=== PATIENT | female | born 1970 | race Two or more races ===

== ENCOUNTER 2024-08-10 23:20 | Emergency (ER) | payer MEDICAID, OTHER ==
[~2024-08-10] VITALS: Ht 152.4 cm; Wt 131.8 kg
--- NOTE | 2024-08-10 23:52 | ED.PDOC ---
GI ASSESSMENT HPI Comments 53-year-old female came to ER for abdominal pain. Patient denies any abdominal surgeries. States she has been having abdominal pain since yesterday, intermittent, non provoked, associated with nausea and vomiting 2x. Noted worsening of abdominal pain prompted her to come to the ER. Chief Complaint: Abdominal Pain Time Seen by MD: 23:51 Reviewed Notes: Nurses Notes Allergies: Coded Allergies: NO KNOWN ALLERGIES (Unverified , 08/10/24) Information Source: Patient Mode of Arrival: EMS Timing: Days Duration: Intermittent Prehospital treatment: None Quality: Aching Vomitus: Watery Stool: Normal Severity: Moderate Recent: None Recent Hx of: None Pain Location: LLQ Associated sign and symptoms: Nausea, Vomiting, Abdominal Pain Past Medical History PAST MEDICAL HISTORY: HTN Surgical History: Denies all surgeries [employer] History: Denies all [employer] Hx Family History Family History: Reviewed,noncontributory to illness Social History Smoker: Non-Smoker Alcohol: Denies ETOH Use Drugs: Denies Drug Use Lives In: Home Constitutional: denies: chills, diaphoresis, fatigue, fever, malaise, sweats, weakness, others EENTM: denies: blurred vision, double vision, ear bleeding, ear discharge, ear drainage, ear pain, ear ringing, eye pain, eye redness, hearing loss, mouth pain, mouth swelling, nasal discharge, nose bleeding, nose congestion, nose pain, photophobia, tearing, throat pain, throat swelling, voice changes, others Respiratory: denies: cough, hemoptysis, orthopnea, SOB at rest, shortness of breath, SOB with excertion, stridor, wheezing, others Cardiovascular: denies: chest pain, dizzy spells, diaphoresis, Dyspnea on exertion, edema, irregular heart beat, left arm pain, lightheadedness, palpitations, PND, syncope, others Gastrointestinal: reports: abdominal pain, nausea, vomiting; denies: abdomen distended, blood streaked bowels, constipated, diarrhea, dysphagia, difficulty swallowing, hematemesis, melena, poor appetite, poor fluid intake, rectal bleeding, rectal pain, others Genitourinary: denies: abnormal vagina bleeding, burning, dyspareunia, dysuria, flank pain, frequency, hematuria, incontinence, pain, , vagina discharge, urgency, others Neurological: denies: dizziness, fainting, headache, left sided numbness, left sided weakness, numbness, paresthesia, pre-existing deficit, right sided numbness, right sided weakness, seizure, speech problems, tingling, tremors, weakness, others Musculoskeletal: denies: back pain, gout, joint pain, joint swelling, muscle pain, muscle stiffness, neck pain, others Integumetry: denies: bruises, change in color, change in hair/nails, dryness, laceration, lesions, lumps, rash, wounds, others Allergic/Immunocompromised: denies: Difficulty Healing, Frequent Infections, Hives, Itching, others Hematologic/Lymphatic: denies: anemia, blood clots, easy bleeding, easy bruising, swollen glands, others Endocrine: denies: excessive hunger, excessive sweating, excessive thirst, excessive urination, flushing, intolerance to cold, intolerance to heat, unexplained weight gain, unexplained weight loss, others Psychiatric: denies: anxiety, bipolar disorder, depression, hopeless, panic disorder, schizophrenia, sleepless, suicidal, others Physical Exam General Appearance: No Apparent Distress, Normal HEENT: Normal ENT Inspection, Pharynx Normal, TMs Normal Neck: Full Range of Motion, Non-Tender, Normal, Normal Inspection Respiratory: Chest Non-Tender, Lungs Clear, No Accessory Muscle Use, No Respiratory Distress, Normal Breath Sounds Cardiovascular: No Edema, No JVD, No Murmur, No Gallop, Normal Peripheral Pulses, Regular Rate/Rhythm Breast Exam: Deferred Gastrointestinal: LLQ, No Organomegaly, No Pulsatile Mass, Normal Bowel Sounds, Soft, Tenderness Genitalia: Deferred Pelvic: Deferred Rectal: Deferred Extremities: No calf tenderness, Normal capillary refill, Normal inspection, Normal range of motion, Non-tender, No pedal edema Musculoskeletal : Apperance: Normal Neurologic: Alert, morning nanny II-XII nml as Tested, No Motor Deficits, Normal Affect, Normal Mood, No Sensory Deficits Cerebellar Function: Normal Reflexes: Normal Skin: Dry, Normal Color, Warm Lymphatic: No Adenopathy Was a procedure done? Was a procedure done?: No GI differential Dx Differential Diagnosis: Cholecystitis, Constipation, Diverticular disease, Gastritis/PUD, Gastroenteritis, Hernia, Ovarian cyst/torsion, Pancreatitis, UTI, Dehydration X-Ray, Labs, Meds, VS Vital Signs Date Time Temp Pulse Resp B/P (MAP) Pulse Ox O2 Delivery O2 Flow Rate FiO2 08/10/24 23:38 98.2 84 20 165/75 (105) 100 Lab Test 08/11/24 03:48 08/10/24 23:44 Range/Units Urine Color Yellow Yellow Urine Clarity Clear Clear Urine pH 5.5 5.0-9.0 Urine Specific [place] > 1.050 H 1.001-1.035 Urine Protein Trace H Negative Urine Ketones 1+ H Negative Urine Blood 3+ H Negative /uL Urine Nitrite Negative Negative Urine Bilirubin Negative Negative Urine Urobilinogen Normal Negative mg/dL Urine Leukocyte Esterase Negative Negative /uL Urine RBC 94 0 - 4 /hpf Urine WBC 1 0 - 5 /hpf Urine Squamous Epithelial Cells Few <5 /hpf Urine Bacteria None seen None Seen /hpf Urine Mucus Few None Seen Urine Glucose Normal Normal mg/dL White Blood Count 12.3 H 4.4-10.8 10^3/uL Red Blood Count 4.84 4.0-5.20 10^6/uL Hemoglobin 14.7 12.2-16.2 g/dL Hematocrit 43.8 36.0-46.0 % Mean Corpuscular Volume 90.6 80.0-100.0 fL Mean Corpuscular Hemoglobin 30.4 28.0-32.0 pg Mean Corpuscular Hemoglobin Concent 33.5 32.0-36.0 g/dL Red Cell Distribution Width 14.3 11.8-14.3 % Platelet Count 336 140-450 10^3/uL Mean Platelet Volume 7.1 6.9-10.8 fL Neutrophils (%) (Auto) 71.5 37.0-80.0 % Lymphocytes (%) (Auto) 20.8 10.0-50.0 % Monocytes (%) (Auto) 5.3 0.0-12.0 % Eosinophils (%) (Auto) 2.0 0.0-7.0 % Basophils (%) (Auto) 0.4 0.0-2.0 % Neutrophils # (Auto) 8.8 H 1.6-8.6 10 ^3/uL Lymphocytes # (Auto) 2.6 0.4-5.4 10 ^3/uL Monocytes # (Auto) 0.6 0-1.3 10 ^3/uL Eosinophils # (Auto) 0.2 0-0.8 10 ^3/uL Basophils # (Auto) 0.1 0-0.2 10 ^3/uL Nucleated Red Blood Cells 0.0 % Sodium Level 141 136-145 mmol/L Potassium Level 4.0 3.5-5.1 mmol/L Chloride Level 108 H 98-107 mmol/L Carbon Dioxide Level 26 20-31 mmol/L Anion Gap 7 5-15 Blood Urea Nitrogen 13 9-23 mg/dL Creatinine 0.94 0.550-1.02 mg/dL Glomerular Filtration Rate Calc 73 >90 mL/min BUN/Creatinine Ratio 13.8 10.0-20.0 Serum Glucose 152 H 74-106 mg/dL Calcium Level 9.9 8.7-10.4 mg/dL Total Bilirubin 0.4 0.2-1.0 mg/dL Aspartate Amino Transferase (AST) 26 13-40 U/L Alanine Aminotransferase (ALT) 29 7-40 U/L Alkaline Phosphatase 118 H 46-116 U/L Total Protein 7.0 5.7-8.2 g/dL Albumin 4.3 3.2-4.8 g/dL Examination: ABPLIV CLINICAL INDICATION: llq abdominal dinorah COMPARISON: None. CONTRAST USED: Intravenous. TECHNIQUE: A post contrast CT study of the abdomen and pelvis is performed after administration of intravenous contrast medium. The examination was performed with [address] scan done according to ALARA (As Low as Reasonably Achievable). Multiplanar reconstructions were obtained. FINDINGS: CT ABDOMEN: Lung Base: The evaluation of lung bases demonstrates no focal infiltrates or pleural effusion. Liver: The liver is normal in size show reduced attenuation. The portal venous radicles are normal. There is no intrahepatic biliary radicle dilatation. Gallbladder: The gallbladder is normal and reveals no intrinsic abnormality. The common bile duct is not dilated. Pancreas: The pancreas is normal in size and shape. No focal lesion is seen within. The peripancreatic fat-planes are normal. Spleen: The spleen is normal in size and does not show any focal abnormality. Retroperitoneum: Both adrenal glands are normal in size and morphology. There is no significant retroperitoneal lymphadenopathy. The kidneys are normal in size. Mild left hydronephrosis is noted secondary to a 4 mm calculus at ureteropelvic junction. Vessels: Aorta, IVC and the mesenteric vessels appear unremarkable. Stomach and Bowel: The bowel loops are unremarkable. There is no ascites. Skeletal System: Mild degenerative changes are noted along the thoracolumbar spine. CT PELVIS: Appendix: The appendix is unremarkable in appearance. Colon: Descending and sigmoid colon diverticulosis is noted. No signs of acute diverticulitis seen. Bladder: The urinary bladder is unremarkable. Pelvic Organs: Uterus is unremarkable. No adnexal mass lesion seen. No pelvic lymphadenopathy is identified. No abnormal fluid collection is seen. Umbilical hernia is noted with omentum herniating as content. IMPRESSION: 1. Mild left hydronephrosis secondary to small ureteropelvic junction calculus. 2. Fatty hepatic infiltration. 3. Umbilical hernia. 4. Descending and sigmoid colon diverticulosis. No signs of acute diverticulitis seen. Time of 1ST Reevaluation: 23:48 Reevaluation 1ST: Unchanged Patient Education/Counseling: Diagnosis, Treatment Family Education/Counseling: No Family Present Departure 1 Departure Time of Disposition: 05:36 (Patient presented with abdominal pain that was concerning for possible appendicits, gastritis, cholecystitis, colitis, gastroenteritis, or orther possible surgical emergency. Data: 1. I ordered and reviewed the result of at least 3 labs including a CBC, BMP, and Urinalysis. 2. I independently interpreted the following tests: CT Abdoment and Pelvis is concerning for renal colic.Risk:This patient has a high risk of morbidity due to further diagnostic testing or treatment and may suffer from an acute abdominal process disorder. Fortunately workup reveals a 4 mm kidney stone and patient can be safely discharged to home with outpatient follow up.) Impression: Primary Impression: Renal colic on left side Disposition: 01 HOME / SELF CARE / HOMELESS Condition: Stable Referrals: ANANYA CALLE MD Additional Instructions: You have a kidney stone. You were prescribed flomax. Please take as directed. For pain you can take the followinam: Ibuprofen 400mg with food Noon: Acetaminophen 1000mg 4pm: Ibuprofen 400mg with food 8pm: Acetaminophen 1000mg You were prescribed oxycodone to take as needed for breakthrough pain. Please take as directed. You should follow up with your regular doctor or a urologist within one week to ensure you are doing better. If your symptoms worsen or you have any other concerns then please return to the ER. e-Prescriptions Oxycodone HCl (Oxycodone Hydrochloride) 5 Mg Tab 5 MG PO QID PRN for 4 Days, #16 TAB Prov: IRENE SUAREZ MD 1/19/25 Tamsulosin Hcl (Flomax) 0.4 Mg Cap 1 CAP PO DAILY for 14 Days, #30 CAP 11 Refills Prov: IRENE SUAREZ MD 08/11/24 Discharged With: Self Critical Care Note Critical Care Time?: No Stability Stability form required: No Heart Score Heart Score: Heart Score Response (Comments) Value History N/A 0 EKG N/A 0 Age N/A 0 Risk Factors N/A 0 Troponin N/A 0 Total 0 I personally scribed for IRENE SUAREZ MD ([email or web address]) on 08/10/24 at 23:52. El ectronically submitted by Reynaldo Rehman ([facility] I personally scribed for IRENE SUAREZ MD ([facility] on 08/11/24 at 04:21. Electronically submitted by Reynaldo Rehman ([facility] IRENE SUAREZ MD Aug 10, 2024 23:52
[2024-08-11] LABS: Basophils # (auto) 0.1 10 ^3/uL (0-0.2); Basophils % (auto) 0.4 % (0.0-2.0); Eosinophils # (auto) 0.2 10 ^3/uL (0-0.8); Hematocrit 43.8 % (36.0-46.0); Hemoglobin 14.7 g/dL (12.2-16.2); Lymphocytes # (auto) 2.6 10 ^3/uL (0.4-5.4); Lymphocytes % (auto) 20.8 % (10.0-50.0); Mean Corpuscular Hemoglobin 30.4 pg (28.0-32.0); Mean Corpuscular Hgb Conc. 33.5 g/dL (32.0-36.0); Mean Corpuscular Volume 90.6 fL (80.0-100.0); Monocytes # (auto) 0.6 10 ^3/uL (0-1.3); Monocytes % (auto) 5.3 % (0.0-12.0); Neutrophils # (auto) 8.8 10 ^3/uL (1.6-8.6); Neutrophils % (auto) 71.5 % (37.0-80.0); Platelet Count (auto) 336 10^3/uL (140-450); Red Blood Cells 4.84 10^6/uL (4.0-5.20); Red Cell Distribution Width 14.3 % (11.8-14.3); White Blood Cell 12.3 10^3/uL (4.4-10.8)
--- NOTE | 2024-08-11 00:02 | DVH ---
CHEST RADIOGRAPH Indication: llq abdominal pain Technique: Single frontal view of the chest was obtained Comparison: None FINDINGS: Lines and Tubes: None Lungs: No focal consolidation. Pleura: No effusion. No pneumothorax. Cardiomediastinal contours: Unremarkable Bones: No acute osseous abnormality. IMPRESSION: 1. No acute cardiopulmonary disease. HS:Y
[2024-08-11 00:20] LABS: Alanine Aminotransferase 29 U/L (7-40); Albumin 4.3 g/dL (3.2-4.8); Anion Gap 7 (5-15); Aspartate Aminotransferase 26 U/L (13-40); BUN/Creatinine Ratio 13.8 (10.0-20.0); Blood Urea Nitrogen 13 mg/dL (9-23); Calcium 9.9 mg/dL (8.7-10.4); Carbon Dioxide 26 mmol/L (20-31); Sodium 141 mmol/L (136-145)
[2024-08-11 00:21] LABS: Bilirubin, Total 0.4 mg/dL (0.2-1.0)
[2024-08-11 00:30] LABS: Alkaline Phosphatase 118 U/L (46-116); Chloride 108 mmol/L (98-107); Glucose 152 mg/dL (74-106)
[2024-08-11] MEDS: IOHEXOL 300 MG/ML 100ML BOTTLE IJ ONE (01:53)
--- NOTE | 2024-08-11 03:19 | DVH ---
Examination: ABPLIV CLINICAL INDICATION: llq abdominal dinorah COMPARISON: None. CONTRAST USED: Intravenous. TECHNIQUE: A post contrast CT study of the abdomen and pelvis is performed after administration of in travenous contrast medium. The examination was performed with [address] scan done accord ing to ALARA (As Low as Reasonably Achievable). Multiplanar reconstructions were obtained. FINDINGS: CT ABDOMEN: Lung Base: The evaluation of lung bases demonstrates no focal infiltrates or pleural effusion. Liver: The liver is normal in size show reduced attenuation. The portal venous radicles are normal. There is no intrahepatic biliary radicle dilatation. Gallbladder: The gallbladder is normal and reveals no intrinsic abnormality. The common bile duct i s not dilated. Pancreas: The pancreas is normal in size and shape. No focal lesion is seen within. The peripancr eatic fat-planes are normal. Spleen: The spleen is normal in size and does not show any focal abnormality. Retroperitoneum: Both adrenal glands are normal in size and morphology. There is no significant ret roperitoneal lymphadenopathy. The kidneys are normal in size. Mild left hydronephrosis is noted sec ondary to a 4 mm calculus at ureteropelvic junction. Vessels: Aorta, IVC and the mesenteric vessels appear unremarkable. Stomach and Bowel: The bowel loops are unremarkable. There is no ascites. Skeletal System: Mild degenerative changes are noted along the thoracolumbar spine. CT PELVIS: Appendix: The appendix is unremarkable in appearance. Colon: Descending and sigmoid colon diverticulosis is noted. No signs of acute diverticulitis seen. Bladder: The urinary bladder is unremarkable. Pelvic Organs: Uterus is unremarkable. No adnexal mass lesion seen. No pelvic lymphadenopathy is identified. No abnormal fluid collection is seen. Umbilical hernia is noted with omentum herniating as content. IMPRESSION: 1. Mild left hydronephrosis secondary to small ureteropelvic junction calculus. 2. Fatty hepatic infiltration. 3. Umbilical hernia. 4. Descending and sigmoid colon diverticulosis. No signs of acute diverticulitis seen. Electronically Signed 08/11/2024 03:18 Carrol Joyner
[2024-08-11 03:50] LABS: Urine Bacteria None Seen /hpf (None Seen)
[2024-08-11 04:16] LABS: Urine Blood 3+ /uL (Negative); Urine Clarity Clear (Clear); Urine Color Yellow (Yellow); Urine Mucus FEW (None Seen); Urine Protein, UAD TRACE (Negative); Urine Squamous Epithelial Cell FEW /hpf (<5); Urine Urobilinogen Normal (Negative); Urine WBC 1 /hpf (0 - 5); Urine pH 5.5 (5.0-9.0)
[2024-08-11 04:17] LABS: Urine Specific Gravity > 1.050 (1.001-1.035)
[2024-08-11] MEDS ORDERED: TAMS-35 PO (05:38)
[2024-08-11] MEDS ORDERED: OXYC-900 PO (05:38)
[2024-08-11] MEDS: TAMSULOSIN HYDROCHLORIDE 0.4 MG CAP PO ONE (06:16)
[2024-08-11] MEDS: KETOROLAC TROMETH 30 MG/ML 1ML VIAL IV ONE (06:16)
[2024-08-11] MEDS: HYDROcodone-ACET 5/325MG TAB PO ONE (06:17)
[2024-08-11 06:20] VITALS: BP 142/81; PULSE 79; RESP 17; TEMP 98.1; O2SAT 98
== END 2024-08-11 05:40 | disposition home or self-care (01) ==
LOC: ER 23:20 → EDBD 23:20 → ER 08-11 05:40
DX: N13.2 Hydronephrosis with renal and ureteral calculous obstruction (principal); I10 Essential (primary) hypertension
CPT/HCPCS: 36415; 71045; 74177; 80053; 81001; 85025; 96374; 99285; J1885; Q9967